=== PATIENT | male | born 1980 | race Caucasian/White ===

== ENCOUNTER 2017-02-13 21:22 | Emergency (ER) | payer SELFPAY ==
[2017-02-13] MEDS ORDERED: BUPIVACAINE HCL/PF 5 MG/ML 10ML VIAL IJ ONE (21:35)
[2017-02-13] MEDS ORDERED: NEOMYCIN SU/BACITRAC ZN/POLY 1 EACH OINT.PACK TP ONE (22:14)
--- NOTE | 2017-02-13 22:20 | ED Physician Documentation ---
General Adult - HISTORIAN Historian: patient - HPI Stated Complaint: LAC R MID FINGER Chief Complaint: Laceration/Recheck/Suture Additional Information: Cut finger on fan/fan housing in van. Onset: minutes - ROS CONST: no problems - PAST HX Past History: none Surgeries/Procedures: none Immunizations: tetanus (thinks within last five years) Allergies/Adverse Reactions: Allergies Allergy/AdvReac Type Severity Reaction Status Date / Time No Known Allergies Allergy Verified 02/13/17 21:29 Home Medications: Ambulatory Orders Medication Instructions Recorded NK [NK] 02/13/17 - SOCIAL HX Smoking History: cigarettes (2 PPD x 27 years) - FAMILY HX Family History: No (no signif) - VITAL SIGNS Vital Signs: Vital Signs Temp Pulse Resp BP Pulse Ox 98.5 F 76 18 118/82 98 02/13/17 21:22 02/13/17 21:22 02/13/17 21:22 02/13/17 21:22 02/13/17 21:22 - REVIEWED ASSESSMENTS Nursing Assessment Reviewed: Yes Vitals Reviewed: Yes Procedures Wound Location: upper extremity Wound Length: 2 Wound's Depth, Shape: linear, irregular Wound Explored: clean Betadine Prep?: No (chlorhexadine and saline soak) Anesthesia: 0.5% Sensorcaine Volume of Anesthetic: 1.5 Wound Repaired With: sutures Suture Size/Type: 4:0, nylon Number of Sutures: 4 Layer Closure?: No Splint Applied?: Yes Type of Splint Applied: alumi foam Sling Applied?: No ED Results Lab/Radiology - Orders Orders: ED Orders Category Date Time Status Apply occlusive dressing D Care 02/13/17 22:14 Ordered Finger Splint 1T Care 02/13/17 22:14 Ordered Bupivacaine HCl/Pf [Marcaine 0.5%] Med 02/13/17 21:35 Discontinued 50 mg IJ NOW ONE Neomycin Santana/Bacitrac Zn/Poly [Triple Antibiotic Med 02/13/17 22:14 Once Ointment] 1 each TP NOW ONE General Adult Physical Exam - PHYSICAL EXAM GENERAL APPEARANCE: no distress EENT: eye inspection normal, ENT inspection normal NECK: normal inspection, supple CVS: other (no resp distress) RECTAL: deferred BACK: other (movements w/o pain) SKIN: warm/dry, normal color, other (2 cm lac right 3rd finger ,distal phalanx, volar surface) EXTREMITIES: no evidence of injury, no edema NEURO: CN's nml as tested, motor nml, sensation nml Discharge Clincal Impression: Finger laceration Qualifiers: Encounter type: initial encounter Qualified Code(s): S61.219A - Laceration without foreign body of unspecified finger without damage to nail, initial encounter Referrals: Primary Doctor,No [Primary Care Provider] - 2 Days Home Medications: Ambulatory Orders NK [NK] 02/13/17 Condition: Good Disposition: 01 HOME, SELF-CARE Decision to Admit: NO Decision Time: 22:22
[2017-02-13 22:49] VITALS: BP 110/74
== END 2017-02-13 22:25 | disposition home or self-care (01) ==
LOC: ED 21:22
DX: S61.219A Laceration without foreign body of unspecified finger without damage to nail, initial encounter (principal); X58.XXXA Exposure to other specified factors, initial encounter; Y93.9 Activity, unspecified; Y99.9 Unspecified external cause status
CPT/HCPCS: J3490; J7030; 12001; 99283